=== PATIENT | male | born 1960 | race Caucasian/White ===

== ENCOUNTER → 2019-04-03 | Outpatient (CLI) | payer SELFPAY ==
[2019-04-03 16:22] LABS: ABSOLUTE RETIC # 24 10e9/L (24-90); RETICULOCYTE % 0.67 % (0.50-2.40)
[2019-04-03 22:34] LABS: BAND NEUTROPHILS 11 %; LYMPHOCYTES % (MANUAL) 3 %; MONOCYTES % (MANUAL) 3 %; NEUTROPHILS % (MANUAL) 82 %; RBC MORPH NORMAL
== END ==
LOC: LABNPT 06:40
PROVIDERS: ATTEND Family Medicine
DX: Z01.89 Encounter for other specified special examinations (principal)
CPT/HCPCS: 85007; 85045

== ENCOUNTER → 2019-04-30 | Outpatient (CLI) | payer SELFPAY | LOC: WOUNDCARE 12:34 | PROVIDERS: ATTEND Surgery | DX: L98.492 Non-pressure chronic ulcer of skin of other sites with fat layer exposed (principal); L98.1 Factitial dermatitis; L98.491 Non-pressure chronic ulcer of skin of other sites limited to breakdown of skin; E11.622 Type 2 diabetes mellitus with other skin ulcer | CPT/HCPCS: 11042 ==

== ENCOUNTER → 2019-05-28 | Outpatient (CLI) | payer SELFPAY | LOC: WOUNDCARE 10:55 | PROVIDERS: ATTEND Surgery | DX: L92.8 Other granulomatous disorders of the skin and subcutaneous tissue (principal); L98.492 Non-pressure chronic ulcer of skin of other sites with fat layer exposed; L98.491 Non-pressure chronic ulcer of skin of other sites limited to breakdown of skin; L98.1 Factitial dermatitis; E11.622 Type 2 diabetes mellitus with other skin ulcer; E11.52 Type 2 diabetes mellitus with diabetic peripheral angiopathy with gangrene | CPT/HCPCS: 17250 ==

== ENCOUNTER → 2019-06-18 | Outpatient (CLI) | payer SELFPAY | LOC: WOUNDCARE 10:53 | PROVIDERS: ATTEND Surgery | DX: L92.8 Other granulomatous disorders of the skin and subcutaneous tissue (principal); L98.492 Non-pressure chronic ulcer of skin of other sites with fat layer exposed; L98.1 Factitial dermatitis; L98.491 Non-pressure chronic ulcer of skin of other sites limited to breakdown of skin; E11.622 Type 2 diabetes mellitus with other skin ulcer; E11.52 Type 2 diabetes mellitus with diabetic peripheral angiopathy with gangrene | CPT/HCPCS: 17250 ==

== ENCOUNTER → 2019-07-02 | Outpatient (CLI) | payer SELFPAY | LOC: WOUNDCARE 10:50 | PROVIDERS: ATTEND Preventive Medicine Undersea and Hyperbaric Medicine | DX: L92.8 Other granulomatous disorders of the skin and subcutaneous tissue (principal); L98.492 Non-pressure chronic ulcer of skin of other sites with fat layer exposed; L98.1 Factitial dermatitis; L98.491 Non-pressure chronic ulcer of skin of other sites limited to breakdown of skin; E11.622 Type 2 diabetes mellitus with other skin ulcer; L97.502 Non-pressure chronic ulcer of other part of unspecified foot with fat layer exposed; L03.039 Cellulitis of unspecified toe | CPT/HCPCS: 99213 ==

== ENCOUNTER → 2020-11-05 | Outpatient (CLI) | payer OTHER ==
--- NOTE | 2020-11-05 10:20 | Diagnostic Imaging Report ---
INDICATION: Back pain Lumbar spine AP and lateral views of lumbar spine show postoperative changes from a dorsal fusion with rods and bi-pedicular screws at L4, L5 and S1. There is disc space narrowing at both L4-L5 and L5-S1. Patient's had laminectomies at those levels. Other intervertebral disc spaces are normal. Alignment is normal. There are no compression fractures. IMPRESSION: Postsurgical changes from dorsal fusion at L3-L4 and L4-L5. No acute abnormality seen. Dictated by: Dictated on workstation # [id number]
== END ==
LOC: RAD 09:29
PROVIDERS: ATTEND Anesthesiology Pain Medicine
DX: Z02.71 Encounter for disability determination (principal); M54.5 Low back pain; Z98.1 Arthrodesis status
CPT/HCPCS: 72100

== ENCOUNTER 2021-08-11 06:38 | Inpatient (IN) | payer OTHER ==
[2021-08-11] VITALS (12 sets, daily range): BP systolic 120–178; BP diastolic 73–95
[~2021-08-11] VITALS: Ht 175.3 cm; Wt 116.0 kg
[2021-08-11] MEDS ORDERED: RT-ALBUTEROL HFA 8.5 GM INHALER IH STA (06:48)
[2021-08-11 07:09] LABS: BASOPHILS # (AUTO) 0.1 10^3/uL (0.0-0.1); BASOPHILS % (AUTO) 1 % (0-10); EOSINOPHILS # (AUTO) 0.5 10^3/uL (0.0-0.3); EOSINOPHILS % (AUTO) 4 % (0-10); HEMATOCRIT 37 % (40-54); LYMPHOCYTES # (AUTO) 1.2 10^3/uL (1.0-4.0); LYMPHOCYTES % (AUTO) 10 % (12-44); MEAN CORPUSCULAR HEMOGLOBIN 27 pg (25-34); MEAN CORPUSCULAR HGB CONC 32 g/dL (32-36); MEAN CORPUSCULAR VOLUME 83 fL (80-99); MONOCYTES # (AUTO) 0.5 10^3/uL (0.0-1.0); MONOCYTES % (AUTO) 4 % (0-12); NEUTROPHILS # (AUTO) 9.6 10^3/uL (1.8-7.8); NEUTROPHILS % (AUTO) 80 % (42-75); PLATELET COUNT 299 10^3/uL (130-400)
[2021-08-11 07:22] LABS: ALBUMIN 3.9 GM/DL (3.2-4.5); POTASSIUM 4.4 MMOL/L (3.6-5.0)
--- NOTE | 2021-08-11 07:22 | ED General ---
General Chief Complaint: Respiratory Problems Stated Complaint: SOB Nursing Triage Note: Pt arrives per EMS w/ c/o SOB on exertion. Lifted to stretcher and attached to playground monitor. With movement pt became SOB w/ audible wheezes. SpO2 on room air 80-82%. Placed on O2 @ 3L/min per NC w/ SpO2 increased to 94-96%. Physician to room Source of Information: Patient Exam Limitations: No Limitations History of Present Illness Date Seen by Provider: Aug 11, 2021 Time Seen by Provider: 06:40 Initial Comments This 61-year-old gentleman presents to the emergency room via EMS with primary complaint of shortness of breath. Oxygen saturation is 80% on room air when transition to the ER bed from EMS cot. Saturations quickly resuscitated with nasal cannula at 3 L/min. Patient denies history of hypoxia and does not use any oxygen supplements at home. He has not been feeling well for several days and had an acute worsening of shortness of breath overnight. He has had a little bit of cough for a few days but denies fever or chills. Denies nausea, vomiting, diarrhea, or change in taste or smell. He is vaccinated against COVID-19 but lacks his booster. He was not vaccinated for influenza. He denies smoking or history of COPD or asthma, but he is wheezing with a prolonged expiratory phase and use of abdominal muscles on exam. He is not in distress. He describes his chest as feeling tight with breathing but he denies any chest pain or pressure. His primary care provider is Burt Yi at [facility]. 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 He states he takes a diuretic for heart failure but has not had a recent formal cardiac work-up. Allergies and Home Medications Allergies Coded Allergies: morphine (Verified Allergy, Unknown, 08/11/21) Patient Home Medication List Home Medication List Reviewed: Yes Review of Systems Review of Systems Constitutional: no symptoms reported EENTM: no symptoms reported Respiratory: see HPI Cardiovascular: no symptoms reported Gastrointestinal: no symptoms reported Genitourinary: no symptoms reported Musculoskeletal: no symptoms reported Skin: no symptoms reported Psychiatric/Neurological: No Symptoms Reported Hematologic/Lymphatic: No Symptoms Reported Immunological/Allergic: no symptoms reported Past Nzfaxbq-Wjmqfx-Vwbzxm Hx Patient Social History Tobacco Use?: No Substance use?: No Alcohol Use?: Yes Alcohol Frequency: Rarely Past Medical History Surgeries: Yes Orthopedic (Back) Respiratory: No Cardiac: Yes (Reports congestive heart failure) Hypertension Neurological: No Reproductive Disorders: No Gastrointestinal: No Musculoskeletal: Yes Chronic Back Pain Endocrine: Yes Diabetes, Non-Insulin dep HEENT: No Cancer: No Psychosocial: No Integumentary: No Physical Exam Vital Signs Vital Signs - First Documented 08/11/21 08/11/21 07:00 07:06 Temp 36.9 Pulse 128 Resp 24 B/P (MAP) 203/126 (151) Pulse Ox 96 O2 Delivery Nasal Cannula O2 Flow Rate 3.00 Capillary Refill : Less Than 3 Seconds Height, Weight, BMI Height: '" Weight: lbs. oz. kg; 36.00 BMI Method: General Appearance: No Apparent Distress, WD/WN, Obese HEENT: PERRL/EOMI, Normal ENT Inspection Neck: Normal Inspection; No JVD Respiratory: Accessory Muscle Use; No Crackles; Wheezing, Other (Prolonged expiratory phase) Cardiovascular: No Murmur, Tachycardia (Regular), Other (Trace lower extremity edema) Gastrointestinal: Normal Bowel Sounds, Non Tender, Soft Extremity: Normal Inspection, Non Tender, Swelling (Trace lower extremity edema) Neurologic/Psychiatric: Alert, Oriented x3, No Motor/Sensory Deficits, Normal Mood/Affect Skin: Normal Color, Warm/Dry Progress/Results/Core Measures Suspected Sepsis SIRS Temperature: Pulse: 128 Respiratory Rate: 24 Laboratory Tests 08/11/21 06:53: White Blood Count 12.0H Blood Pressure 203 /126 Mean: 151 Laboratory Tests 08/11/21 06:53: Creatinine 1.09, INR Comment 0.8, Platelet Count 299, Total Bilirubin 0.5 Results/Orders Lab Results Laboratory Tests Test 08/11/21 06:53 08/11/21 06:57 Range/Units White Blood Count 12.0 H 4.3-11.0 10^3/uL Red Blood Count 4.47 4.30-5.52 10^6/uL Hemoglobin 12.0 L 13.3-17.7 g/dL Hematocrit 37 L 40-54 % Mean Corpuscular Volume 83 80-99 fL Mean Corpuscular Hemoglobin 27 25-34 pg Mean Corpuscular Hemoglobin Concent 32 32-36 g/dL Red Cell Distribution Width 13.0 10.0-14.5 % Platelet Count 299 130-400 10^3/uL Mean Platelet Volume 10.0 9.0-12.2 fL Immature Granulocyte % (Auto) 1 % Neutrophils (%) (Auto) 80 H 42-75 % Lymphocytes (%) (Auto) 10 L 12-44 % Monocytes (%) (Auto) 4 0-12 % Eosinophils (%) (Auto) 4 0-10 % Basophils (%) (Auto) 1 0-10 % Neutrophils # (Auto) 9.6 H 1.8-7.8 10^3/uL Lymphocytes # (Auto) 1.2 1.0-4.0 10^3/uL Monocytes # (Auto) 0.5 0.0-1.0 10^3/uL Eosinophils # (Auto) 0.5 H 0.0-0.3 10^3/uL Basophils # (Auto) 0.1 0.0-0.1 10^3/uL Immature Granulocyte # (Auto) 0.1 0.0-0.1 10^3/uL Prothrombin Time 11.3 L 12.2-14.7 SEC INR Comment 0.8 0.8-1.4 Activated Partial Thromboplast Time 21 L 24-35 SEC Sodium Level 134 L 135-145 MMOL/L Potassium Level 4.4 3.6-5.0 MMOL/L Chloride Level 101 98-107 MMOL/L Carbon Dioxide Level 21 21-32 MMOL/L Anion Gap 12 5-14 MMOL/L Blood Urea Nitrogen 24 H 7-18 MG/DL Creatinine 1.09 0.60-1.30 MG/DL Estimat Glomerular Filtration Rate 78 BUN/Creatinine Ratio 22 Glucose Level 330 H 70-105 MG/DL Calcium Level 9.2 8.5-10.1 MG/DL Corrected Calcium 9.3 8.5-10.1 MG/DL Magnesium Level 1.8 1.6-2.4 MG/DL Total Bilirubin 0.5 0.1-1.0 MG/DL Aspartate Amino Transf (AST/SGOT) 25 5-34 U/L Alanine Aminotransferase (ALT/SGPT) 28 0-55 U/L Alkaline Phosphatase 87 40-136 U/L Myoglobin 81.1 10.0-92.0 NG/ML Troponin I 0.042 H <0.028 NG/ML C-Reactive Protein High Sensitivity 0.34 0.00-0.50 MG/DL B-Type Natriuretic Peptide 173.5 H <100.0 PG/ML Total Protein 7.0 6.4-8.2 GM/DL Albumin 3.9 3.2-4.5 GM/DL Influenza Type A (RT-PCR) Not Detected Not Detecte Influenza Type B (RT-PCR) Not Detected Not Detecte SARS-CoV-2 RNA (RT-PCR) Not Detected Not Detecte D-Dimer 0.84 H 0.00-0.49 UG/ML My Orders Orders - J LUIS BASS MD Cbc With Automated Diff (08/11/21 06:48) Magnesium (08/11/21 06:48) Chest 1 View, Ap/Pa Only (08/11/21 06:48) Ekg Tracing (08/11/21 06:48) Comprehensive Metabolic Panel (08/11/21 06:48) Myoglobin Serum (08/11/21 06:48) Protime With Inr (08/11/21 06:48) Partial Thromboplastin Time (08/11/21 06:48) O2 (08/11/21 06:48) Monitor-Rhythm Ecg Trace Only (08/11/21 06:48) Lipid Panel (08/12/21 06:00) Ed Iv/Invasive Line Start (08/11/21 06:48) Bnp Kiah (08/11/21 06:48) Troponin I Glenn (08/11/21 06:48) Hs C Reactive Protein (08/11/21 06:48) Albuterol Inhaler (Albuterol) (08/11/21 06:48) Covid 19 Inhouse Test (08/11/21 06:52) Influenza A And B By Pcr (08/11/21 06:52) Fibrin Degradation Products (08/11/21 07:39) Ct Angio Chest W (08/11/21 08:14) Nitroglycerin 0.4 Mg Btl 25's (Nitrostat (08/11/21 08:45) Aspirin Chewable Tablet (Baby Aspirin Ch (08/11/21 08:45) Ekg Tracing (08/11/21 08:43) Iohexol Injection (Omnipaque 350 Mg/Ml 1 (08/11/21 09:15) Received Contrast (Hold Metformin- Contr (08/11/21 09:15) Ns (Ivpb) (Sodium Chloride 0.9% Ivpb Bag (08/11/21 09:15) Ed Admission (Communication) (08/11/21 09:39) Furosemide Injection (Lasix Injection) (08/11/21 09:45) Potassium Chloride (Tablet) (Klor Con Ta (08/11/21 09:45) Enoxaparin Injection (Lovenox Injectio (08/11/21 09:45) Medications Given in ED Current Medications Medications Dose Ordered Sig/Truong Route Start Time Stop Time Status Last Admin Dose Admin Aspirin 324 mg ONCE ONCE PO 08/11/21 08:45 08/11/21 08:46 DC 08/11/21 08:53 324 MG Enoxaparin Sodium 120 mg ONCE ONCE SC 08/11/21 09:45 08/11/21 09:47 DC 08/11/21 09:57 120 MG Furosemide 80 mg ONCE ONCE IVP 08/11/21 09:45 08/11/21 09:47 DC 08/11/21 09:56 80 MG Iohexol 100 ml ONCE ONCE IV 08/11/21 09:15 08/11/21 09:16 DC 08/11/21 09:04 85 ML Nitroglycerin 0.4 mg UD PRN SL 08/11/21 08:45 08/11/21 09:29 0.4 MG Potassium Chloride 20 meq ONCE ONCE PO 08/11/21 09:45 08/11/21 09:47 DC 08/11/21 09:56 20 MEQ Sodium Chloride 100 ml ONCE ONCE IV 08/11/21 09:15 08/11/21 09:16 DC 08/11/21 09:04 100 ML Vital Signs/I&O 08/11/21 08/11/21 08/11/21 08/11/21 07:00 07:06 10:35 10:39 Temp 36.9 Pulse 128 99 Resp 24 18 B/P (MAP) 203/126 (151) 153/88 Pulse Ox 96 94 94 98 O2 Delivery Nasal Cannula Nasal Cannula Nasal Cannula Nasal Cannula O2 Flow Rate 3.00 3.00 3.00 3.00 3.00 Capillary Refill : Less Than 3 Seconds Blood Pressure Mean: 151 Progress Note #1: Time: 07:21 Progress Note Patient was seen and examined. Labs and x-ray are pending. EKG was unremarkable. He remained stable on nasal cannula. Progress Note #2: Time: 08:41 Progress Note Patient notes improvement in his chest tightness after using inhaler. On repeat examination his wheezing has resolved and expiration duration and effort has improved. He was noted to have mild elevations in D-dimer and troponin. CT an giogram of the chest is pending. He now reports he has been having intermittent episodes of left chest discomfort which he rates a 2/10. We will give him aspirin and nitroglycerin when he returns from CT scan and repeat an EKG. Progress Note #3: Time: 09:43 Progress Note Patient received nitroglycerin x2. There was no notable relief in chest pressure. CT angiogram revealed small effusions and pulmonary edema but no pulmonary embolus. Patient appears to be suffering some decompensation of heart failure. I discussed the case with Dr. Alvarez. He is recommending Lasix, potassium, Lovenox, and further evaluation with repeat troponin and echocardiogram. Case was also discussed with Dr. Sanders who accepts admission and will place admission orders. ECG Initial ECG Impression Date: Aug 11, 2021 Initial ECG Impression Time: 06:47 Initial ECG Rate: 106 Initial ECG Rhythm: S.Tach Comment Sinus tachycardia with no ST elevation or depression. No abnormal intervals or axis deviation. EKG : EKG Time: 09:06 Rate: 104 Rhythm: S.Tach Intervals: Normal ECG Impression: Normal Comment Normal sinus rhythm with no ST elevation or depression. No abnormal intervals or axis deviation. Multiple PVCs noted. Diagnostic Imaging Diagonstic Imaging: Xray Plain Films/CT/US/NM/MRI: chest Comments Chest x-ray viewed by me and report reviewed. See report below: NAME: [facility] REC#: [id number] PT STATUS: REG ER : 1960 PHYSICIAN: J LUIS BASS MD ADMIT DATE: 08/11/21/ER Draft Date of Exam:08/11/21 CHEST 1 VIEW, AP/PA ONLY EXAM: CHEST 1 VIEW, AP/PA ONLY INDICATION: Chest pain. COMPARISON: None. FINDINGS: Cardiomegaly. Normal central pulmonary vascularity. Interstitial and airspace opacities in the lung bases and right midlung. No pleural effusion or pneumothorax. No acute osseous findings. IMPRESSION: 1. Cardiomegaly with normal central pulmonary vascularity. 2. Atelectasis or infiltrate in the lung bases and right midlung. Dictated on workstation # [id number] Dict: 08/11/2129 Trans: 08/11/21 0732 [id number] Interpreted by: ELOY TAVAREZ MD Departure Communication (Admissions) Time/Spoke to Admitting Phy: 09:35 Dr. Sanders Time/Spoke to Consulting Phy: 09:30 Dr. Alvarez Impression Primary Impression: CHF (congestive heart failure) Qualified Codes: I50.9 - Heart failure, unspecified Additional Impressions: Hypoxia Chest pain Qualified Codes: R07.9 - Chest pain, unspecified Wheezing Disposition: ADMITTED INPATIENT Condition: Improved Admissions Decision to Admit Reason: Admit from ER (General) Decision to Admit/Date: Aug 11, 2021 Time/Decision to Admit Time: 09:30 J LUIS BASS MD Aug 11, 2021 07:22
[2021-08-11 07:24] LABS: CALCIUM 9.2 MG/DL (8.5-10.1)
[2021-08-11 07:27] LABS: BILIRUBIN,TOTAL 0.5 MG/DL (0.1-1.0)
[2021-08-11 07:28] LABS: CREATININE SERUM 1.09 MG/DL (0.60-1.30)
[2021-08-11 07:31] LABS: MAGNESIUM 1.8 MG/DL (1.6-2.4)
--- NOTE | 2021-08-11 07:33 | Diagnostic Imaging Report ---
EXAM: CHEST 1 VIEW, AP/PA ONLY INDICATION: Chest pain. COMPARISON: None. FINDINGS: Cardiomegaly. Normal central pulmonary vascularity. Interstitial and airspace opacities in the lung bases and right midlung. No pleural effusion or pneumothorax. No acute osseous findings. IMPRESSION: 1. Cardiomegaly with normal central pulmonary vascularity. 2. Atelectasis or infiltrate in the lung bases and right midlung. Dictated by: Dictated on workstation # [id number]
[2021-08-11 07:43] LABS: INR 0.8 (0.8-1.4); PROTHROMBIN TIME PATIENT 11.3 SEC (12.2-14.7)
[2021-08-11] MEDS ORDERED: ASPIRIN 81 MG CHEW (CHILDREN'S ASA) PO ONE (08:45)
[2021-08-11] MEDS: NITROGLYCERIN 0.4 MG SL TABS BTL 25'S SL PRN ×2 (09:10→09:29)
--- NOTE | 2021-08-11 09:13 | Diagnostic Imaging Report ---
EXAMINATION: CT angiography of the chest. TECHNIQUE: Contrast enhanced thin section helical images were obtained through the chest with intravenous contrast timed for the optimal opacification of the arterial structures per CTA protocol. Post-processing, reconstructions and interpretation of angiographic images of the vessels was performed. 3D MIP reconstructions were performed and reviewed. All CT scans use one or more of the following dose optimizing techniques: automated exposure control, MA and/or KvP adjustment based on a patient size and exam type, or iterative reconstruction. HISTORY: Shortness of breath. COMPARISON: None available. FINDINGS: There is no pulmonary embolism. There is septal line thickening and centrilobular groundglass in a pattern most consistent with pulmonary edema. There are small bilateral pleural effusions with overlying atelectasis. No pneumothorax. No suspicious nodules. There is no axillary or supraclavicular lymphadenopathy. There is no mediastinal lymphadenopathy. Heart size is normal. There are moderate coronary artery calcifications. No pericardial effusion. Aorta is normal in caliber. Limited views of the upper abdomen are unremarkable. There are no suspicious osseus lesions. IMPRESSION: 1. No pulmonary embolism. 2. Moderate pulmonary edema and small bilateral pleural effusions. Dictated by: Dictated on workstation # [id number]
[2021-08-11] MEDS ORDERED: HOLD METFORMIN - RECEIVED CONTRAST 20 ML VIAL IV SCH (09:15)
[2021-08-11] MEDS ORDERED: IOHEXOL 350 MG/ML 100 ML (OMNIPAQUE 350) VIAL IV ONE (09:15)
[2021-08-11] MEDS ORDERED: NS 100 ML (IVPB) BAG IV ONE (09:15)
[2021-08-11] MEDS ORDERED: ENOXAPARIN 60 MG/0.6 ML (LOVENOX) SYR SC ONE (09:45)
[2021-08-11] MEDS ORDERED: FUROSEMIDE 40 MG/4 ML INJ (LASIX) IVP ONE (09:45)
[2021-08-11] MEDS ORDERED: KCL 10 MEQ TAB (MICRO K) PO ONE (09:45)
[2021-08-11] MEDS ORDERED: polyethylene glycoL POWDER 17 GM (MIRALAX) PACK PO PRN (11:15)
[2021-08-11] MEDS ORDERED: diphenhydrAMINE 50 MG/ML INJ (BENADRYL) IVP PRN (11:15)
[2021-08-11] MEDS ORDERED: MELATONIN 3 MG TABLET PO PRN (11:15)
[2021-08-11] MEDS ORDERED: HYDROmorphone 2 MG/ML VIAL (DILAUDID) IVP PRN (11:15)
[2021-08-11] MEDS ORDERED: ANTACID SUSP 30 ML UDC (MYLANTA) PO PRN (11:15)
[2021-08-11] MEDS ORDERED: CALCIUM CARBONATE 500 MG (TUMS) TAB.CHEW PO PRN (11:15)
[2021-08-11] MEDS ORDERED: diphenhydrAMINE 25 MG TAB (BENADRYL) PO PRN (11:15)
[2021-08-11] MEDS ORDERED: ACETAMINOPHEN 325 MG TABLET PO PRN (11:15)
[2021-08-11] MEDS ORDERED: ONDANSETRON 4 MG (ZOFRAN) ORAL DISSOLVE TAB PO PRN (11:15)
[2021-08-11] MEDS ORDERED: ENOXAPARIN 100 MG/1 ML (LOVENOX) SYR SC SCH (11:15)
[2021-08-11] MEDS ORDERED: LACTULOSE SYRUP 10GM/15ML (ENULOSE) 30ML UDC PO PRN (11:15)
[2021-08-11] MEDS ORDERED: BISACODYL 10 MG SUPP (DULCOLAX) PR PRN (11:15)
[2021-08-11] MEDS ORDERED: PATIENT MAY USE OWN MEDS, ALL PO SCH (11:15)
[2021-08-11] MEDS ORDERED: ONDANSETRON 4 MG/2 ML (SDV) Z0FRAN IV PRN (11:15)
[2021-08-11] MEDS ORDERED: MILK OF MAGNESIA 400 MG/5 ML 30 ML UDC PO PRN (11:15)
[2021-08-11] MEDS ORDERED: NALOXONE 0.4 MG/ML 1 ML (NARCAN) VIAL IV PRN (11:15)
[2021-08-11] MEDS ORDERED: ENOXAPARIN 120 MG/0.8 ML (LOVENOX) SQ SCH (12:00)
--- NOTE | 2021-08-11 12:36 | History & Physical-Hospitalist ---
LEWISJOHN 08/11/21 1236: History of Present Illness HPI/Chief Complaint CC: SOB HPI: Viet Brunson is a 61 y/o M with a PMH of HTN, CHF, Diabetes, and Chronic Back Pain who presented with shortness of breath. He states that this was most severe this morning when he was on the phone with his son. He has also noticed worsening orthopnea for the last 4-5 days. He is unable to work and function due to his chronic back pain. He is vaccinated for Covid without a booster and did not get an influenza vaccine. His PCP is Burt Yi at [facility]. He does take a diuretic for heart failure but has not had a recent formal cardiac work-up and does not have a journalists and other writers. Cardiology has been consulted. Source: patient, RN/MD Date Seen 08/11/21 Time Seen by a Provider: 12:30 Attending Physician Geetha Shelton DO PCP Deleted Referring Physician Date of Admission Aug 11, 2021 at 11:13 Home Medications & Allergies Home Medications Reviewed patient Home Medication Reconciliation performed by pharmacy medication reconciliations database software technician and/or nursing. Patients Allergies have been reviewed. Allergies Allergies Coded Allergies morphine (Verified Allergy, Unknown, 08/11/21) Past Pmkzsch-Roqadq-Gbjscs Hx Patient Social History Tobacco Use?: No Smoking Status: Former Smoker Substance use?: No Alcohol Use?: No Alcohol type: Beer Alcohol Frequency: Once in a while Pt feels they are or have been: No Immunizations Up To Date First/Initial COVID19 Vaccinat: 2020 Second COVID19 Vaccination Tee: 2020 Current Status Advance Directives: No Communicates: Verbally Primary Language: Mohawk Preferred Spoken Language: Mohawk Implanted or Applied Medical D: None Past Medical History Surgeries: Orthopedic (Back) Hypertension Chronic Back Pain Diabetes, Non-Insulin dep Review of Systems Constitutional: No chills, No fever EENTM: No blurred vision Respiratory: No cough; dyspnea on exertion, orthopnea, short of breath Cardiovascular: No chest pain, No palpitations Gastrointestinal: No abdominal pain, No constipation, No diarrhea Skin: lesions, pruritus Physical Exam Physical Exam Vital Signs Vital Signs - First Documented 08/11/21 08/11/21 07:00 07:06 Temp 36.9 Pulse 128 Resp 24 B/P (MAP) 203/126 (151) Pulse Ox 96 O2 Delivery Nasal Cannula O2 Flow Rate 3.00 Capillary Refill : NONE Height, Weight, BMI Height: '" Weight: lbs. oz. kg; 37.78 BMI Method: HEENT: Normal ENT Inspection Neck: Full Range of Motion, Normal Inspection Respiratory: Normal Breath Sounds, No Accessory Muscle Use Cardiovascular: Other (unable to perform, robotic maintenance technician in room) Gastrointestinal: Normal Bowel Sounds, Non Tender, Soft Rectal: Deferred Extremity: Normal Inspection (lesions from scratching due to pruritis) Neurologic/Psychiatric: Alert, Oriented x3, Normal Mood/Affect Skin: Normal Color, Warm/Dry, Rash Results Results/Procedures Labs Laboratory Tests 08/11/21 06:53 Patient resulted labs reviewed. Imaging: Reviewed Imaging Report Assessment/Plan Admission Diagnosis Congestive Heart Failure Admission Status: Observation Assessment and Plan Acute hypoxic respiratory failure secondary to CHF - Echo results pending - lasix 40 - cardiology consulted, appreciate recs NSTEMI - elevated troponin - normal EKG - follow cardiology recs SIRS - HR: 128, RR: 24 - CXR: infiltrates in renan bases, and R. midlung - CTA : ruled out PE, showed small renan pleural effusions Diabetes - hold home meds - SSI HTN - continue home lisinopril Clinical Quality Measures AMI/AHF: ASA po Prior to arrival: GEETHA Vivar DO 08/12/21 0542: History of Present Illness HPI/Chief Complaint CC: SOB HPI: CHC pt who has a past medical history of volume overload. He presented with SOB. He had elevated BNP. CT angiogram was performed due to elevated D-Dimer which showed pulmonary edema and effusions. Dr. Alvarez ordered Lovenox, Lasix, and an echocardiogram. At this current time pt is feeling better and diuresing after 80 mg of Lasix given in the ER. Source: patient, RN/MD Past Duisbhf-Ktvgep-Fhdtgn Hx Patient Social History Marrital Status: Employed/Student: retired Past Medical History Chronic Edema/Swelling, High Cholesterol, Hypertension Review of Systems Constitutional: see HPI, malaise, weakness EENTM: no symptoms reported Respiratory: dyspnea on exertion Cardiovascular: chest pain Gastrointestinal: no symptoms reported Genitourinary: no symptoms reported Musculoskeletal: no symptoms reported Skin: no symptoms reported Psychiatric/Neurological: No Symptoms Reported All Other Systems Reviewed Negative Unless Noted: Yes Physical Exam Physical Exam General Appearance: No Apparent Distress, Chronically ill Eyes: Right Eye Normal Inspection, Right Eye PERRL HEENT: PERRL/EOMI, Normal ENT Inspection, Pharynx Normal, Moist Mucous Membranes Neck: Full Range of Motion, Normal Inspection, Non Tender Respiratory: Chest Non Tender, Lungs Clear, Normal Breath Sounds, No Accessory Muscle Use, No Respiratory Distress Cardiovascular: Regular Rate, Rhythm, No Edema, No Gallop, No JVD, No Murmur, Normal Peripheral Pulses Gastrointestinal: Normal Bowel Sounds, No Organomegaly, No Pulsatile Mass, Non Tender, Soft Back: Normal Inspection, No CVA Tenderness, No Vertebral Tenderness Extremity: Normal Capillary Refill, Normal Inspection, Normal Range of Motion, Non Tender, No Calf Tenderness, No Pedal Edema Neurologic/Psychiatric: Alert, Oriented x3, No Motor/Sensory Deficits, Normal Mood/Affect Skin: Normal Color, Warm/Dry Lymphatic: No Adenopathy Assessment/Plan Admission Diagnosis Assessment: Congestive heart failure Elevated troponin Hypertension Plan: Cardiology consult Monitor closely Admission Status: Inpatient Order (span 2 midnights) Reason for Inpatient Admission: chf Supervisory-Addendum Brief Verification & Attestation Participated in pt care: history, MDM, physical Personally performed: exam, history, MDM, supervision of care Care discussed with: Medical Student Procedures: n/a Results interpretation: Verified all documentation Verification and Attestation of Medical Student E/M Service A medical student performed and documented this service in my presence. I reviewed and verified all information documented by the medical student and made modifications to such information, when appropriate. I personally performed the physical exam and medical decision making. Geetha Shelton, Aug 12, 2021,05:42 JOHN LEWIS Aug 11, 2021 12:36 GEETHA SHELTON DO Aug 12, 2021 05:42
--- NOTE | 2021-08-11 12:39 | Consultation-Cardiology ---
HPI-Cardiology Cardiology Consultation Date of Consultation 08/11/21 Date of Admission Time Seen by Provider: 12:34 Indication: Chest pain HPI 61 years old gentleman with history of hypertension, hyperlipidemia, obesity, reported that he had a cardiac catheterization over 10 years ago and he was told that he had 70% stenosis in one of his coronaries. Did not require stenting at that time. Has been doing well, reporting occasional orthopnea and dyspnea on exertion, came to the hospital for an episode of chest pain described as dull in nature in the retrosternal area and left side of his chest and has been having worsening orthopnea. Noted to have elevation in BNP and troponin. No acute EKG changes. Home Medications & Allergies Allergies: Coded Allergies: morphine (Verified Allergy, Unknown, 08/11/21) Home Medication List Reviewed: Yes HTH-[id number]-[id number] Hx Patient Social History Marital Status: Employed/Student: employed Smoking Status: Former Smoker Have you traveled recently?: No Alcohol Use?: No Past Medical History Discussed below Family Medical History Family Medical Hx Noncontributory Review of Systems-General Review of Systems Constitutional: no symptoms reported, see HPI EENTM: see HPI, no symptoms reported Respiratory: see HPI; No cough; dyspnea on exertion; No hemoptysis; orthopnea; No phlegm, No short of breath, No stridor, No wheezing, No other Cardiovascular: see HPI, chest pain; No edema, No Hx of Intervention, No palpitations, No syncope, No vascular heart diseas, No other Gastrointestinal: no symptoms reported, see HPI Genitourinary: no symptoms reported, see HPI Musculoskeletal: no symptoms reported, see HPI Skin: no symptoms reported, see HPI Psychiatric/Neurological: No Symptoms Reported, See HPI Reviewed Test Results Reviewed Test Results Lab Laboratory Tests Test 08/11/21 06:53 08/11/21 06:57 Range/Units White Blood Count 12.0 H 4.3-11.0 10^3/uL Red Blood Count 4.47 4.30-5.52 10^6/uL Hemoglobin 12.0 L 13.3-17.7 g/dL Hematocrit 37 L 40-54 % Mean Corpuscular Volume 83 80-99 fL Mean Corpuscular Hemoglobin 27 25-34 pg Mean Corpuscular Hemoglobin Concent 32 32-36 g/dL Red Cell Distribution Width 13.0 10.0-14.5 % Platelet Count 299 130-400 10^3/uL Mean Platelet Volume 10.0 9.0-12.2 fL Immature Granulocyte % (Auto) 1 % Neutrophils (%) (Auto) 80 H 42-75 % Lymphocytes (%) (Auto) 10 L 12-44 % Monocytes (%) (Auto) 4 0-12 % Eosinophils (%) (Auto) 4 0-10 % Basophils (%) (Auto) 1 0-10 % Neutrophils # (Auto) 9.6 H 1.8-7.8 10^3/uL Lymphocytes # (Auto) 1.2 1.0-4.0 10^3/uL Monocytes # (Auto) 0.5 0.0-1.0 10^3/uL Eosinophils # (Auto) 0.5 H 0.0-0.3 10^3/uL Basophils # (Auto) 0.1 0.0-0.1 10^3/uL Immature Granulocyte # (Auto) 0.1 0.0-0.1 10^3/uL Prothrombin Time 11.3 L 12.2-14.7 SEC INR Comment 0.8 0.8-1.4 Activated Partial Thromboplast Time 21 L 24-35 SEC Sodium Level 134 L 135-145 MMOL/L Potassium Level 4.4 3.6-5.0 MMOL/L Chloride Level 101 98-107 MMOL/L Carbon Dioxide Level 21 21-32 MMOL/L Anion Gap 12 5-14 MMOL/L Blood Urea Nitrogen 24 H 7-18 MG/DL Creatinine 1.09 0.60-1.30 MG/DL Estimat Glomerular Filtration Rate 78 BUN/Creatinine Ratio 22 Glucose Level 330 H 70-105 MG/DL Calcium Level 9.2 8.5-10.1 MG/DL Corrected Calcium 9.3 8.5-10.1 MG/DL Magnesium Level 1.8 1.6-2.4 MG/DL Total Bilirubin 0.5 0.1-1.0 MG/DL Aspartate Amino Transf (AST/SGOT) 25 5-34 U/L Alanine Aminotransferase (ALT/SGPT) 28 0-55 U/L Alkaline Phosphatase 87 40-136 U/L Myoglobin 81.1 10.0-92.0 NG/ML Troponin I 0.042 H <0.028 NG/ML C-Reactive Protein High Sensitivity 0.34 0.00-0.50 MG/DL B-Type Natriuretic Peptide 173.5 H <100.0 PG/ML Total Protein 7.0 6.4-8.2 GM/DL Albumin 3.9 3.2-4.5 GM/DL Influenza Type A (RT-PCR) Not Detected Not Detecte Influenza Type B (RT-PCR) Not Detected Not Detecte SARS-CoV-2 RNA (RT-PCR) Not Detected Not Detecte D-Dimer 0.84 H 0.00-0.49 UG/ML Physical Exam Physical Exam Vital Signs Vital Signs - First Documented 08/11/21 08/11/21 07:00 07:06 Temp 36.9 Pulse 128 Resp 24 B/P (MAP) 203/126 (151) Pulse Ox 96 O2 Delivery Nasal Cannula O2 Flow Rate 3.00 Capillary Refill : NONE Height, Weight, BMI Height: '" Weight: lbs. oz. kg; 37.78 BMI Method: General Appearance: No Apparent Distress, WD/WN, Obese Eyes: Bilateral Eye Normal Inspection, Bilateral Eye PERRL, Bilateral Eye EOMI HEENT: PERRL/EOMI, Normal ENT Inspection Neck: Normal Inspection; No JVD Respiratory: Accessory Muscle Use; No Crackles; Wheezing, Other (Prolonged expiratory phase) Cardiovascular: No Murmur, Tachycardia (Regular), Other (Trace lower extremity edema) Gastrointestinal: Normal Bowel Sounds, Non Tender, Soft Back: Normal Inspection, No CVA Tenderness, No Vertebral Tenderness Extremity: Normal Inspection, Non Tender, Swelling (Trace lower extremity edema) Neurologic/Psychiatric: Alert, Oriented x3, No Motor/Sensory Deficits, Normal Mood/Affect Skin: Normal Color, Warm/Dry Lymphatic: No Adenopathy A/P-Cardiology Admission Diagnosis Chest pain Congestive heart failure Hypertension Hyperlipidemia Assessment/Plan Chest pain resembling angina, mild elevation in troponin, I will continue to monitor the trend. Patient has significant dyspnea, reporting that he had known coronary artery disease with a cardiac catheterization done in [place] over 10 years ago told he had 70% stenosis in one of his arteries. I recommended cardiac catheterization possible PTCA which will be done tomorrow. Congestive heart failure, mild elevation in troponin, significant orthopnea. Responding well to diuretics. Continue to monitor tolerance and response, evaluate 2D echo Hypotension, restart home medication and monitor blood pressure Hyperlipidemia, monitor lipids Diabetes mellitus, followed and managed by primary care physician Obesity, BMI is 37 High risk for sleep apnea, recommend sleep study as an outpatient Clinical Quality Measures AMI/AHF: ASA po Prior to arrival: GABRIEL Kurtz MD Aug 11, 2021 12:39
[2021-08-11] MEDS ORDERED: FLU QUADRIvalent (3YOA+) 60 mcg/0.5 ml 2021-22(AFLURIA) IM ONE (12:45)
[2021-08-11] MEDS ORDERED: SITA1TAB2 PO (13:48)
[2021-08-11] MEDS ORDERED: CITA20TA9 PO (13:48)
[2021-08-11] MEDS ORDERED: HYDR-3817 PO (13:48)
[2021-08-11] MEDS ORDERED: TIZA-186 PO (13:48)
[2021-08-11] MEDS ORDERED: ASPI-1238 PO (13:48)
[2021-08-11] MEDS ORDERED: INSU100I29 SQ (13:48)
[2021-08-11] MEDS ORDERED: LISI1TAB48 PO (13:48)
[2021-08-11] MEDS ORDERED: ATOR80TA76 PO (13:48)
[2021-08-11] MEDS ORDERED: NS IV 1000 ML 1,000 ML ONE (14:42)
[2021-08-11] MEDS: NS IV 1000 ML 1,000 ML IV SCH ×4 (14:45→19:36)
[2021-08-11] MEDS ORDERED: VERAPAMIL 5 MG/2 ML (CALAN) VIAL IV ONE (15:07)
[2021-08-11] MEDS ORDERED: fentaNYL INJ 100 MCG/2 ML AMP ONE (15:08)
[2021-08-11] MEDS ORDERED: MIDAZOLAM 5 MG/5 ML (VERSED) VIAL ONE (15:08)
[2021-08-11] MEDS ORDERED: NITRO DRIP 25000 MCG/D5W 250 ML IV ONE (15:08)
[2021-08-11] MEDS ORDERED: HEParin 1000 UNIT/ML (10ML VIAL) FOR BOLUS ONE (15:08)
[2021-08-11] MEDS ORDERED: LIDOCAINE 1% INJ 20 ML VIAL ONE (15:15)
[2021-08-11] MEDS ORDERED: HEParin (CATH LAB) 2,000 ML IV ONE (15:15)
--- NOTE | 2021-08-11 16:19 | Cardiac Cath Report ---
Cardiac Cath Report Physician (s)/Mixer Slagman (s) Physician GABRIEL MONTALVO MD Pre-Procedure Diagnosis Pre-Procedure Diagnosis: Non-ST elevation myocardial infarction Post-Procedure Note Procedure Start Date: Aug 11, 2021 Name of Procedure: Left heart catheterization Left ventriculogram Aortic arch angiogram Findings/Procedure Note PROCEDURE NOTE: 61 years old gentleman with history of diabetes mellitus, hypertension hyperlipidemia, admitted for shortness of breath, had elevation in troponin and BNP. Had an abnormal echo, scheduled for cardiac catheterization possible PTCA. After explaining the procedure to the patient, all pros and cons were explained, all questions were answered. The patient signed the consent and then he was placed on the cardiac catheterization laboratory. Groin was prepped SL fashion local anesthesia was used. Sheath placed in the right radial artery, [place] catheter was advanced to the left ventricular cavity, I decided to do left ventriculogram due to the fact that his echocardiogram images were suboptimal. Left ventriculogram was done. Pullback LV to aorta was done. Engaged the right and left coronary system, angiogram was done. Then I pulled it back to the aortic arch and aortic arch angiogram was done. At the end of the procedure the sheath was removed. Vascular band was used FINDINGS: Hemodynamics LV 131/20, end-diastolic pressure of 20 Aorta 130/94 mean of 409 ANATOMY: Left Main is free of obstructive disease Left Anterior Descending is heavily calcified proximally, occluded at the midportion, the distal LAD at the apical level is getting filled by faint collateral, the diagonal artery also is receiving some collaterals. Left Circumflex is moderate in size, the first obtuse marginal branch has severe stenosis proximally, the second obtuse marginal branch has severe stenosis proximally. Right Coronary Artery is dominant artery with severe stenosis at the midportion LV Gram was done showing mild hypokinesia of the anterior wall, estimate ejection fraction 45% Aorta evaluation done with aortic arch angiogram showing normal size aortic arch, no dissection or aneurysm, tortuous brachiocephalic artery, I did not see any significant obstructive disease in the left carotid artery or left subclavian artery. CONCLUSION: 1. Total occlusion of the mid LAD and diagonal artery, the distal LAD has some faint collaterals filling the apical portion and the diagonal artery receiving some collaterals. 2. Severe stenosis of the first and second obtuse marginal branches. 3. Severe stenosis at the mid right coronary artery 4. Dilated left ventricle with hypokinesia of the anterior wall, estimate ejection fraction 45% 5. Normal aortic arch and great vessels of the neck DISCUSSION AND RECOMMENDATION: I will evaluate viability study to the anterior wall then we can consider multivessel intervention to the obtuse marginal branch and right coronary artery versus referral for bypass surgery. Anesthesia Type: Conscious Sedation Estimated blood loss (mL): 10 ml Contrast Amount: 60 ml Total Radiation Dose: 899 mGy Post-Procedure Diagnosis Post-operative diagnosis: Non-ST elevation myocardial infarction Coronary artery disease Congestive heart failure, acute left ventricular systolic dysfunction, ischemic cardiomyopathy Hypertension Hyperlipidemia Diabetes mellitus GABRIEL MONTALVO MD Aug 11, 2021 16:19
[2021-08-11] MEDS: inSUlin ASPART (NovoLOG) 1 UNIT/0.01 ML (CHARGE PER UNIT) SC SCH ×2 (18:18→21:27)
[2021-08-11] MEDS: LOSARTAN 25 MG (COZAAR) TAB PO SCH (18:19)
[2021-08-11] MEDS: FUROSEMIDE 40 MG/4 ML INJ (LASIX) IVP SCH (18:19)
[2021-08-11] MEDS: RT-ALBUTEROL/IPRATROPIUM 3 ML (DUONEB) VIAL INH SCH ×2 (18:28→21:34)
[2021-08-11] MEDS: SENNOSIDES 8.6 MG (SENOKOT) TAB PO SCH (21:26)
[2021-08-11] MEDS: DOCUSATE SODIUM 100 MG (COLACE) CAP PO SCH (21:27)
[2021-08-12 00:36] VITALS: BP 152/95
[2021-08-12] MEDS: RT-ALBUTEROL/IPRATROPIUM 3 ML (DUONEB) VIAL INH SCH ×3 (02:25→14:47)
[2021-08-12 03:43] VITALS: BP 154/76
[2021-08-12 05:47] LABS: BASOPHILS # (AUTO) 0.1 10^3/uL (0.0-0.1); BASOPHILS % (AUTO) 1 % (0-10); EOSINOPHILS # (AUTO) 0.4 10^3/uL (0.0-0.3); EOSINOPHILS % (AUTO) 4 % (0-10); HEMATOCRIT 35 % (40-54); HEMOGLOBIN 11.5 g/dL (13.3-17.7); LYMPHOCYTES # (AUTO) 1.4 10^3/uL (1.0-4.0); LYMPHOCYTES % (AUTO) 14 % (12-44); MEAN CORPUSCULAR HEMOGLOBIN 27 pg (25-34); MEAN CORPUSCULAR HGB CONC 33 g/dL (32-36); MEAN CORPUSCULAR VOLUME 83 fL (80-99); MEAN PLATELET VOLUME 10.4 fL (9.0-12.2); MONOCYTES # (AUTO) 0.6 10^3/uL (0.0-1.0); MONOCYTES % (AUTO) 6 % (0-12); NEUTROPHILS # (AUTO) 7.4 10^3/uL (1.8-7.8); NEUTROPHILS % (AUTO) 75 % (42-75); PLATELET COUNT 289 10^3/uL (130-400); WHITE BLOOD COUNT 9.8 10^3/uL (4.3-11.0)
[2021-08-12 05:57] LABS: POTASSIUM 4.3 MMOL/L (3.6-5.0)
[2021-08-12 05:58] LABS: ALBUMIN 3.6 GM/DL (3.2-4.5)
[2021-08-12 05:59] LABS: CALCIUM 9.2 MG/DL (8.5-10.1)
[2021-08-12 06:00] LABS: TOTAL PROTEIN 6.5 GM/DL (6.4-8.2)
[2021-08-12 06:02] LABS: BILIRUBIN,TOTAL 0.6 MG/DL (0.1-1.0)
[2021-08-12 06:04] LABS: CREATININE SERUM 1.02 MG/DL (0.60-1.30)
[2021-08-12] MEDS: inSUlin ASPART (NovoLOG) 1 UNIT/0.01 ML (CHARGE PER UNIT) SC SCH ×2 (06:13→12:51)
[2021-08-12] MEDS: FUROSEMIDE 40 MG/4 ML INJ (LASIX) IVP SCH (06:14)
[2021-08-12 08:00] VITALS: BP 165/99
[2021-08-12] MEDS: SENNOSIDES 8.6 MG (SENOKOT) TAB PO SCH (08:53)
[2021-08-12] MEDS: LOSARTAN 25 MG (COZAAR) TAB PO SCH (08:53)
[2021-08-12] MEDS: DOCUSATE SODIUM 100 MG (COLACE) CAP PO SCH (08:53)
[2021-08-12] MEDS: NS IV 1000 ML 1,000 ML IV SCH ×2 (08:55→12:23)
[2021-08-12] MEDS ORDERED: ASPIRIN E.C. 81 MG (ECOTRIN) TAB PO SCH (09:00)
[2021-08-12] MEDS ORDERED: ENOXAPARIN 40 MG/0.4 ML (LOVENOX) SYR SC SCH (09:00)
--- NOTE | 2021-08-12 10:06 | Cardiology Progress Note ---
Subjective Date Seen by Provider: Aug 12, 2021 Time Seen by Provider: 08:40 Subjective/Events-last exam Patient is sitting up in chair, denies any chest pain or increased dyspnea. Review of Systems General: No Chills, No Night Sweats, No Fatigue, No Malaise, No Appetite, No Other HEENT: No Head Aches, No Visual Changes, No Eye Pain, No Ear Pain, No Dysphasia, No Sinus Congestion, No Post Nasal Drip, No Sore Throat, No Other Pulmonary: No Dyspnea, No Cough, No Pleuritic Chest Pain, No Other Cardiovascular: No: Chest Pain, Palpitations, Orthopnea, Paroxysmal Noc. Dyspnea, Edema, Lt Headedness, Other Objective-Cardiology Exam Last Set of Vital Signs Vital Signs 08/12/21 08/12/21 12:15 12:48 Temp 36.5 Pulse 99 Resp 16 B/P (MAP) 168/74 (105) Pulse Ox 94 O2 Delivery Room Air I&O Intake and Output 08/12/21 00:00 Intake Total 1530 ml Output Total 850 ml Balance 680 ml Intake Oral 1530 ml Output Urine Total 850 ml # Voids 4 Daily Weight Change No General: Alert, Oriented X3, Cooperative HEENT: Atraumatic Neck: Supple Lungs: Clear to Auscultation, Normal Air Movement Heart: Regular Rate, Normal S1, Normal S2, No Murmurs Abdomen: Normal Bowel Sounds, Soft Extremities: No Clubbing, No Cyanosis, No Edema Skin: No Rashes, No Significant Lesion Neuro: Normal Speech, Cranial Nerves 3-12 NL Psych/Mental Status: Mental Status NL, Mood NL Results Lab Laboratory Tests 08/12/21 05:10 A/P-Cardiology Admission Diagnosis Chest pain Congestive heart failure Hypertension Hyperlipidemia Assessment/Plan Chest pain resembling angina, reporting some improvement. Coronary artery disease, underwent cardiac catheterization 08/11/21 showing Total occlusion of the mid LAD and diagonal artery, the distal LAD has some faint collaterals filling the apical portion and the diagonal artery receiving some collaterals. Severe stenosis of the first and second obtuse marginal branches. Severe stenosis at the mid right coronary artery. Dilated left ventricle with hypokinesia of the anterior wall, estimate ejection fraction 45%. Normal aortic arch and great vessels of the neck I will evaluate viability study as outpatient to the anterior wall then we can consider multivessel intervention to the obtuse marginal branch and right saenz ry artery versus referral for bypass surgery. Study scheduled for Tuesday/Tuesday of next week. Starting on Plavix in addition to the aspirin Congestive heart failure, mild elevation in troponin, significant orthopnea. Responding well to diuretics. Continue to monitor tolerance and response. 2D echo done 08/11/21 showing hypokinesia to anterior and apical myocardium with EF 35-40%. Grade 2 diastolic dysfunction. Dilated LA 5.2cm, dilated right atrium, mild , PA 25-30mmHg. Started on Coreg 3.125 mg daily and losartan 25 mg daily We will switch Lasix to oral 40 mg daily and add Aldactone 25 mg daily Hypertension, controlled, continue to monitor. Hyperlipidemia, controlled. Diabetes mellitus, followed and managed by primary care physician Obesity, BMI is 37 High risk for sleep apnea, recommend sleep study as an outpatient Okay for discharge and follow-up as an outpatient Supervisory-Addendum Brief Supervisory Addendum Participated in pt care: history, MDM, physical Personally performed: exam, history, MDM Care discussed with: MALENA Results interpretation: Verified all documentation Notes: Patient was seen and evaluated with Randy, examination performed, management plan was discussed, agree with the current scribed note, I made few changes to the note using Italic font Patient was seen at bedside sitting comfortably no new complaint Medication change as described above Arrangement for viability study as an outpatient Appointment in 2 weeks in my office RANDY RODRIGUEZ Aug 12, 2021 10:06 GABRIEL MONTALVO MD Aug 12, 2021 14:03
--- NOTE | 2021-08-12 11:34 | Progress Note - Hospitalist ---
JOHN LEWIS 08/12/21 1134: Subjective HPI/CC On Admission Date Seen by Provider: Aug 12, 2021 Time Seen by Provider: 11:00 CC: SOB HPI: CHC pt who has a past medical history of volume overload. He presented with SOB. He had elevated BNP. CT angiogram was performed due to elevated D-Dimer which showed pulmonary edema and effusions. Dr. Alvarez ordered Lovenox, Lasix, and an echocardiogram. At this current time pt is feeling better and diuresing after 80 mg of Lasix given in the ER. Subjective/Events-last exam Patient is doing well. He had a heart cath yesterday and is waiting to talk to the crossing guard about next steps. Review of Systems General: No Chills, No Fatigue HEENT: No Head Aches, No Visual Changes Pulmonary: No Dyspnea, No Cough Cardiovascular: No: Chest Pain, Palpitations Gastrointestinal: No: Nausea, Vomiting, Abdominal Pain, Diarrhea, Constipation Musculoskeletal: back pain Neurological: No: Weakness, Numbness Objective Exam Vital Signs Vital Signs Date Time Temp Pulse Resp B/P (MAP) Pulse Ox O2 Delivery O2 Flow Rate FiO2 08/12/21 08:00 96 Nasal Cannula 2.00 08/12/21 08:00 35.6 100 18 165/99 (121) Capillary Refill : Less Than 3 Seconds General Appearance: No Apparent Distress, Obese HEENT: Normal ENT Inspection Neck: Normal Inspection, Non Tender Respiratory: Normal Breath Sounds, No Accessory Muscle Use Cardiovascular: Regular Rate, Rhythm, No Gallop, No Murmur Gastrointestinal: Normal Bowel Sounds, Non Tender, Soft Rectal: Deferred Back: Normal Inspection Extremity: Normal Inspection, Non Tender Neurologic/Psychiatric: Alert, Oriented x3 Skin: Ecchymosis, Rash Results/Procedures Lab Laboratory Tests 08/12/21 05:10 Patient resulted labs reviewed. Imaging: Reviewed Imaging Report Assessment/Plan Assessment and Plan Assess & Plan/Chief Complaint Acute hypoxic respiratory failure secondary to CHF - Echo showed EF of 35-40% - lasix 40 - coreg 3.125 - losartan 25 - appreciate cardiology recs NSTEMI - elevated troponin - normal EKG - cardiac cath done yesterday showed multivessal occlusion - cardiology to do viability study to determine next steps - appreciate cardiology recs Diabetes - hold home meds - SSI HTN - losartan 25 HLD - restart home atorvastatin 80 Hospital Course: Viet Brunson is a 61 y/o M with a PMH of HTN, CHF, Diabetes, and Chronic Back Pain who presented with shortness of breath. An echo was performed and showed an EF of 35-40% and hypokinesis of the anterior myocardium. A cardiac catheterization showed total occlusion of the mid LAD and diagonal arteries with some collateral flow, sever stenosis of the first and second obtuse marginals and severe stenosis of the RCA. Dr. Alvarez has scheduled an outpatient viability study next M/T to assess wall function before proceeding with intervention. It is also likely that his shortness of breath is related to undiagnosed obstructive sleep apnea so he may benefit from an outpatient sleep study. Clinical Quality Measures AMI/AHF: ASA po Prior to arrival: No GEETHA SHELTON DO 08/13/21 0549: Subjective Subjective/Events-last exam Patient set for discharge Review of Systems General: Fatigue Objective Exam General Appearance: No Apparent Distress, WD/WN, Chronically ill, Obese Assessment/Plan Assessment and Plan Assess & Plan/Chief Complaint Discharge plan Supervisory-Addendum Brief Verification & Attestation Participated in pt care: history, MDM, physical Personally performed: exam, history, MDM, supervision of care Care discussed with: Medical Student Procedures: n/a Results interpretation: Verified all documentation Verification and Attestation of Medical Student E/M Service A medical student performed and documented this service in my presence. I reviewed and verified all information documented by the medical student and made modifications to such information, when appropriate. I personally performed the physical exam and medical decision making. Geetha Shelton, Aug 13, 2021,05:49 JOHN LEWIS Aug 12, 2021 11:34 GEETHA SHELTON DO Aug 13, 2021 05:49
[2021-08-12 12:15] VITALS: BP 168/74
[2021-08-12] MEDS ORDERED: FUROSEMIDE 40 MG (LASIX) TAB PO SCH (14:00)
[2021-08-12] MEDS ORDERED: SPIRONOLACTONE 25 MG (ALDACTONE) TAB PO SCH (14:00)
[2021-08-12] MEDS ORDERED: CLOPIDOGREL 300 MG (PLAVIX) TABLET PO NR (14:00)
[2021-08-12] MEDS ORDERED: CLOP75TA28 PO (14:05)
[2021-08-12] MEDS ORDERED: CARV3.122 PO (14:05)
[2021-08-12] MEDS ORDERED: POTA10TA PO (14:05)
[2021-08-12] MEDS ORDERED: SPIR25TA5 PO (14:05)
[2021-08-12] MEDS ORDERED: FURO40TA4 PO (14:05)
[2021-08-12] MEDS ORDERED: LOSA25TA41 PO (14:05)
[2021-08-12] MEDS ORDERED: PANT40SU PO (14:06)
--- NOTE | 2021-08-12 14:27 | Discharge Summary ---
Discharge Summary Hospital Course Was the Problem List Reviewed?: Yes Problems/Dx: (1) Chest pain Status: Acute Qualifiers: Qualified Codes: R07.9 - Chest pain, unspecified (2) Hypoxia Status: Acute Hospital Course Date of Admission: Aug 11, 2021 at 11:13 Admission Diagnosis : Family Physician/Provider: Date of Discharge: 08/12/21 Discharge Diagnosis: Chest pain, congestive heart failure, non-ST elevation OR, multivessel coronary artery disease, systolic dysfunction Hospital Course: Pt had a brief hospital course after he was admitted for CHF with elevated troponin. He underwent cardiac catheterization showing multi vessel disease. In evaluation of the viability of cardiac function will be done as an outpatient. Multiple meds were changed by cardiology and those were sent to the pharmacy by Dr. Alvarez. Pt was deemed stable for discharge. Labs and Pending Lab Test: Laboratory Tests 08/11/21 15:26: Glucometer 281H 08/11/21 16:58: Glucometer 272H 08/11/21 20:10: Glucometer 281H 08/12/21 05:10: White Blood Count 9.8, Red Blood Count 4.25L, Hemoglobin 11.5L, Hematocrit 35L, Mean Corpuscular Volume 83, Mean Corpuscular Hemoglobin 27, Mean Corpuscular Hemoglobin Concent 33, Red Cell Distribution Width 13.2, Platelet Count 289, Mean Platelet Volume 10.4, Immature Granulocyte % (Auto) 1, Neutrophils (%) (Auto) 75, Lymphocytes (%) (Auto) 14, Monocytes (%) (Auto) 6, Eosinophils (%) (Auto) 4, Basophils (%) (Auto) 1, Neutrophils # (Auto) 7.4, Lymphocytes # (Auto) 1.4, Monocytes # (Auto) 0.6, Eosinophils # (Auto) 0.4H, Basophils # (Auto) 0.1, Immature Granulocyte # (Auto) 0.1, Sodium Level 135, Potassium Level 4.3, Chloride Level 101, Carbon Dioxide Level 24, Anion Gap 10, Blood Urea Nitrogen 24H, Creatinine 1.02, Estimat Glomerular Filtration Rate 84, BUN/Creatinine Ratio 24, Glucose Level 223H, Calcium Level 9.2, Corrected Calcium 9.5, Total Bilirubin 0.6, Aspartate Amino Transf (AST/SGOT) 26, Alanine Aminotransferase (ALT/SGPT) 23, Alkaline Phosphatase 77, Total Protein 6.5, Albumin 3.6, Tri glycerides Level 180H, Cholesterol Level 131, LDL Cholesterol Direct 74, VLDL Cholesterol 36, HDL Cholesterol 29L 08/12/21 12:01: Glucometer 331H Home Meds Active Protonix (Pantoprazole Sodium) 40 Mg Granpkt.dr 40 Mg PO DAILY K-Tab ER (Potassium Chloride) 10 Meq Tablet.er 10 Meq PO DAILY Furosemide 40 Mg Tablet 40 Mg PO DAILY Spironolactone 25 Mg Tablet 25 Mg PO DAILY Losartan Potassium 25 Mg Tablet 25 Mg PO DAILY Carvedilol 3.125 Mg Tablet 3.125 Mg PO BID Clopidogrel (Clopidogrel Bisulfate) 75 Mg Tablet 75 Mg PO DAILY Reported Janumet 50-500 mg Tablet (Sitagliptin Phos/Metformin HCl) 1 Tab Tablet 1 Tab PO BID Aspirin EC (Aspirin) 81 Mg Tablet.dr 81 Mg PO DAILY Tizanidine HCl 4 Mg Tablet 4 Mg PO QID Hydrocodone-Acetamin 7.5-325 (Hydrocodone/Acetaminophen) 1 Each Tablet 1 Each PO Q8H PRN Citalopram HBr (Citalopram Hydrobromide) 20 Mg Tablet 20 Mg PO HS Levemir Flextouch (Insulin Detemir) 100 Unit/1 Ml Insuln.pen 30 Unit SQ BID Atorvastatin Calcium 80 Mg Tablet 80 Mg PO HS Lisinopril-Hctz 20-25 mg Tab (Lisinopril/Hydrochlorothiazide) 1 Each Tablet 1 Ea ch PO DAILY Assessment/Pt Instructions PCP in 1 week Discharge Planning: <30 minutes discharge planning Discharge Physical Examination Vital Signs Vital Signs Date Time Temp Pulse Resp B/P (MAP) Pulse Ox O2 Delivery O2 Flow Rate FiO2 08/12/21 12:48 99 08/12/21 12:15 36.5 16 168/74 (105) 94 Room Air 08/12/21 08:00 2.00 General Appearance: No Apparent Distress, WD/WN, Chronically ill Allergies: Coded Allergies: morphine (Verified Allergy, Unknown, Nausea, 08/11/21) Discharge Summary Date of Admission Aug 11, 2021 at 11:13 Date of Discharge Discharge Date: Aug 12, 2021 Admission Diagnosis Assessment: Congestive heart failure Elevated troponin Hypertension Plan: Cardiology consult Monitor closely Clinical Quality Measures AMI/AHF: ASA po Prior to arrival: TNAIA Vivar DO Aug 12, 2021 14:27
[2021-08-12] MEDS ORDERED: RT-ALBUTEROL/IPRATROPIUM 3 ML (DUONEB) VIAL INH PRN (15:15)
[2021-08-12 15:48] VITALS: BP 168/74
[2021-08-13] MEDS ORDERED: CLOPIDOGREL 75 MG (PLAVIX) TABLET PO SCH (09:00)
== END 2021-08-12 15:59 | disposition home or self-care (01) | DRG 280 ==
LOC: EDUNIT# 06:38 → ER 06:40 → 4TH 11:13 → CSD 16:31 → 4TH 18:50
PROVIDERS: ADMIT Internal Medicine; ATTEND Internal Medicine
PROC: 4A023N7 Measurement of Cardiac Sampling and Pressure, Left Heart, Percutaneous Approach (ICD-10-PCS; principal; 2021-08-11)
PROC: B2111ZZ Fluoroscopy of Multiple Coronary Arteries using Low Osmolar Contrast (ICD-10-PCS; 2021-08-11)
PROC: B2151ZZ Fluoroscopy of Left Heart using Low Osmolar Contrast (ICD-10-PCS; 2021-08-11)
PROC: B3101ZZ Fluoroscopy of Thoracic Aorta using Low Osmolar Contrast (ICD-10-PCS; 2021-08-11)
DX: I11.0 Hypertensive heart disease with heart failure (principal); I50.21 Acute systolic (congestive) heart failure; I21.4 Non-ST elevation (NSTEMI) myocardial infarction; J96.21 Acute and chronic respiratory failure with hypoxia; I25.5 Ischemic cardiomyopathy; I25.119 Atherosclerotic heart disease of native coronary artery with unspecified angina pectoris; E11.9 Type 2 diabetes mellitus without complications; I49.3 Ventricular premature depolarization; Z20.822 Contact with and (suspected) exposure to COVID-19; M54.9 Dorsalgia, unspecified; Z79.4 Long term (current) use of insulin; Z87.891 Personal history of nicotine dependence
CPT/HCPCS: 36221; 36415; 71045; 71275; 80053; 80061; 82947; 83735; 83874; 83880; 84484; 85025; 85379; 85610; 85730; 86141; 87636; 93005; 93041; 93306; 93458; 94640; 94760

== ENCOUNTER → 2021-08-18 | Outpatient (CLI) | payer OTHER ==
[~2021-08-18] MED LIST: ASPI-1238 PO; ATOR80TA76 PO; CARV3.122 PO; CATHETER FLUSH 10 ML SYR IVP PRN; CITA20TA9 PO; CLOP75TA28 PO; FURO40TA4 PO; HYDR-3817 PO; INSU100I29 SQ; LISI1TAB48 PO; LOSA25TA41 PO; PANT40SU PO; POTA10TA PO; SITA1TAB2 PO; SPIR25TA5 PO; TIZA-186 PO
--- NOTE | 2021-08-20 09:08 | Cardiology Stress Test Report ---
Stress Test Report Date of Procedure/Referring: Date of Procedure: Aug 18, 2021 Lanny Barrera Admitting Physician Indications: CAD Summary: Patient for CAD thallium-201 and the resting images were acquired then 24-hour later received a redistribution dose of thallium-201 and the redistribution images were acquired, images were reviewed and completed in the short axis. A mild accident perichondral axis views. Review of the images showed viable myocardium in the anterior myocardium and apex and inferoapical segment. Viable myocardium involving the anterior wall, apex and inferoapical segment GABRIEL MONTALVO MD Aug 20, 2021 09:08
== END ==
LOC: CARD 11:34
PROVIDERS: ATTEND Physician Assistant
DX: I25.10 Atherosclerotic heart disease of native coronary artery without angina pectoris (principal)
CPT/HCPCS: 78452; 93017; A9505

== ENCOUNTER → 2021-10-20 | Outpatient (CLI) | payer MEDICAID ==
[~2021-10-20] MED LIST changes: -CATHETER FLUSH 10 ML SYR IVP PRN
== END ==
LOC: CARD 13:30
PROVIDERS: ATTEND Internal Medicine Cardiovascular Disease
DX: I35.0 Nonrheumatic aortic (valve) stenosis (principal); I25.10 Atherosclerotic heart disease of native coronary artery without angina pectoris; I11.9 Hypertensive heart disease without heart failure
CPT/HCPCS: 93306